=== PATIENT | male | born 1985 | race African-American/Black ===

== ENCOUNTER → 2021-07-22 15:21 | Outpatient (CLI) | payer BC, SELFPAY ==
--- NOTE | ~2021-07-22 | MR_ITS ---
EXAMINATION: MR shoulder LT wo con DATE: 07/22/2021 15:57 INDICATION: Left shoulder pain with superior glenoid labrum lesion TECHNIQUE: Magnetic resonance imaging (MRI) of the left shoulder was performed without intravenous co ntrast. Sequences included axial PD-weighted FS FSE, coronal oblique PD-weighted FS FSE, coronal obli que T2-weighted FS FSE, sagittal PD-weighted FS FSE, and sagittal T1-weighted SE. COMPARISON: None. FINDINGS: Coracoacromial arch: The acromion undersurface is curved in morphology (type II). The coracoacromial ligament is normal. A cromioclavicular joint is normal. Rotator cuff: The supraspinatus, infraspinatus and teres minor tendons are normal. The subscapularis tendon is norm al. Normal rotator cuff muscle bulk and signal. Biceps tendon, glenoid labrum and glenohumeral cartilage: Long head of the biceps tendon is normal. Subtle labral tear with thin fluid signal intensity partial -thickness cleft at the chondral labral junction at the 9:00 position posteriorly and subtle linear i ncreased signal extending peripherally into the labrum at the 11:00 position superiorly. Unclear whet her the tear extends between these 2 locations. Glenohumeral cartilage is normal. Fluid: Physiologic amount of fluid in the glenohumeral joint and biceps tendon sheath. No loose osteochondra l bodies. No abnormal fluid signal in the subacromial/subdeltoid bursa to suggest bursitis. Bones: Normal marrow signal with no edema, fracture or abnormal marrow replacing process. IMPRESSION: 1. Subtle tears evident at the 9:00 position posteriorly and 11:00 position superiorly of the glenoid labrum, unclear whether is intervening extension of the tear along the posterior superior glenoid. Reviewed, dictated and finalized at location B. [employer]LL[employer]STRATOR IMPRESSION: 1. Subtle tears evident at the 9:00 position posteriorly and 11:00 position sup eriorly of the glenoid labrum, unclear whether is intervening extension of the tear along the posterior superior glenoid.
== END ==
DX: S43.432A Superior glenoid labrum lesion of left shoulder, initial encounter (principal); M75.112 Incomplete rotator cuff tear or rupture of left shoulder, not specified as traumatic; X58.XXXA Exposure to other specified factors, initial encounter
CPT/HCPCS: 73221